=== PATIENT | female | born 1930 | race Caucasian/White ===

== ENCOUNTER 2017-08-28 22:56 | Observation (INO) | payer MEDICARE, BC ==
--- NOTE | 2017-08-28 23:10 | Emergency Department Record ---
History of Present Illness - General Chief Complaint: Syncope Stated Complaint: FALL Time Seen by Provider: 08/28/17 23:05 Source: Patient, Family - History of Present Illness Initial Comments: Daughter reports that all day long the patient was doing a colon prep for an elective colonoscopy scheduled for tomorrow. She was finishing her magnesium citrate, in the bathroom when daughter heard a thud and came to find her on the floor in the bathroom. Daughter states that her eyes rolled back in her head and she was unresponsive and she was weight and limp. EMS arrived to find she had been dizzy, diaphoretic, and confused. C collar was placed and she became alert, responsive, BS 131 enroute, and color improved. Daughter states she was getting an elective colonoscopy due to prior polyps, but she denies that she has had any bleeding from the colon or symptoms of any kind. she has no history of stroke. The patient denies headache, chest pain, abdominal pain, hip or leg pain, pelvis pain. She stats her neck is sore. MD Complaint: Collapsed, [place] faint, Loss of consciousness - Related Data Home Medications Medication Instructions Recorded Confirmed Last Taken Aspirin 81 mg PO DAILY 08/28/17 08/28/17 Unknown Atenolol/Chlorthalidone [Tenoretic 1 each PO DAILY 08/28/17 08/28/17 Unknown 50 Tablet] Calcium Carbonate/Vitamin D3 1 each PO DAILY 08/28/17 08/28/17 Unknown [Calcium 600 + Vit D Tablet] Carbidopa/Levodopa 25Mg/100Mg 1 tab PO BID 08/28/17 08/28/17 Unknown [Sinemet] Carbidopa/Levodopa 25Mg/100Mg 2 tab PO TID 08/28/17 08/28/17 Unknown [Sinemet] Docusate Sodium [Colace] 100 mg PO DAILY 08/28/17 08/28/17 Unknown Glucosamine HCl 1,000 mg PO DAILY 08/28/17 08/28/17 Unknown Meloxicam 7.5 mg PO DAILY 08/28/17 08/28/17 Unknown Metformin HCl [Metformin HCl] 500 mg PO BID 08/28/17 08/28/17 Unknown Delton-3 Fatty Acids [Delton-3] 1,000 mg PO BID 08/28/17 08/28/17 Unknown Allergies Allergy/AdvReac Type Severity Reaction Status Date / Time codeine AdvReac NAUSEA Verified 05/18/16 08:29 meperidine HCl [From Demerol] AdvReac NAUSEA Verified 05/18/16 08:29 morphine AdvReac NAUSEA Verified 05/18/16 08:29 pentazocine lactate AdvReac NAUSEA Verified 05/18/16 08:29 [From Dandre] Review of Systems Reviewed: No additional complaints except as noted below Constitutional: Reports: As per HPI. Denies: Chills, Fever, Malaise, Night sweats, Weakness, Weight change Eyes: Reports: As per HPI. Denies: Eye discharge, Eye pain, Photophobia, Vision change ENT: Reports: As per HPI. Denies: Congestion, Dental pain, Ear pain, Epistaxis , Hearing loss, Throat pain Respiratory: Reports: As per HPI. Denies: Cough, Dyspnea, Hemoptysis, Stridor, Wheezes Cardiovascular: Reports: As per HPI. Denies: Arrhythmia, Chest pain, Dyspnea on exertion, Edema, Murmurs, Orthopnea, Palpitations, Paroxysmal nocturnal dyspnea, Rheumatic Fever, Syncope Endocrine: Reports: As per HPI. Denies: Fatigue, Heat or cold intolerance, Polydipsia, Polyuria Gastrointestinal: Reports: As per HPI. Denies: Abdominal pain, Constipation, Diarrhea, Hematemesis, Hematochezia, Melena, Nausea, Vomiting Genitourinary: Reports: As per HPI. Denies: Abnormal menses, Discharge, Dyspareunia, Dysuria, Frequency, Hematuria, Incontinence, Retention, Urgency Musculoskeletal: Reports: As per HPI. Denies: Arthralgia, Back pain, Gout, Joint swelling, Myalgia, Neck pain Skin: Reports: As per HPI. Denies: Bruising, Change in color, Change in hair/ nails, Lesions, Pruritus, Rash Neurological: Reports: As per HPI. Denies: Abnormal gait, Confusion, Headache, Numbness, Paresthesias, Seizure, Tingling, Tremors, Vertigo, Weakness Psychiatric: Reports: As per HPI. Denies: Anxiety, Auditory hallucinations, Depression, Homicidal thoughts, Suicidal thoughts, Visual hallucinations Hematological/Lymphatic: Reports: As per HPI. Denies: Anemia, Blood Clots, Easy bleeding, Easy bruising, Swollen glands Past Medical History - SOCIAL HISTORY Smoking Status: Former smoker - RESPIRATORY Hx Respiratory Disorders: Yes Hx Bronchitis: Yes (3 weeks ago) Hx COPD: Yes Hx Pneumonia: Yes (more than 10 years ago) - CARDIOVASCULAR Hx Cardio Disorders: Yes Hx Deep Vein Thrombosis: Yes (40 years ago right leg) Hx Edema: Yes ("very little") Hx Hypertension: Yes Comment:: uses cane when out of house - NEURO Hx Neuro Disorders: Yes Hx of Migraines: Yes (occass) Hx Neuropathy: Yes (bilateral hands/arms) Hx Seizures: Yes (seizure activity at age 27 was on meds for a while) - GI Hx GI Disorders: Yes Hx Abdominal Pain: Yes (with eating at times) Hx Reflux: Yes Hx Rectal Bleeding: Yes (occ bright red blood) Hx of Polyps: Yes - Hx Genitourinary Disorders: Yes Hx UTI: Yes (within the last year) - ENDOCRINE Hx Endocrine Disorders: Yes Hx Diabetes: Yes (po medication) Hx Thyroid Disease: Yes Comment:: pt does not check her blood suger - MUSCULOSKELETAL Hx Musculoskeletal Disorders: Yes Hx Arthritis: Yes Hx Osteoporosis: Yes Comment:: problems with left leg since femur fracture 2014 - PSYCH Hx Psych Problems: Yes Hx Anxiety: Yes (does not take any meds to treat) - HEMATOLOGY/ONCOLOGY Hx Hematology/Oncology Disorders: Yes Hx Blood Transfusions: Yes (before hyst) Family Medical History Hx Cancer: Brother/Sister *Cancer Comment: sisters x2 : uterine, and colon Hx Heart Disease: Mother *Heart Comment: heart attack Physical Exam - General General Appearance: Alert, Oriented x3, Cooperative, No acute distress, Other ( pale) - Head Head exam: Normal inspection - Eye Eye exam: Normal appearance, PERRL Pupils: Normal accommodation - ENT ENT exam: Normal exam, Mucous membranes moist, Normal external ear exam, Normal orophraynx, TM's normal bilaterally Ear exam: Normal external inspection. negative: External canal tenderness Nasal Exam: Normal inspection. negative: Discharge, Sinus tenderness Mouth exam: Normal external inspection, Tongue normal Teeth exam: Normal inspection. negative: Dental caries Throat exam: Normal inspection. negative: Tonsillar erythema, Tonsillar exudate - Neck Neck exam: Normal inspection, Full ROM. negative: Tenderness - Respiratory Respiratory exam: Normal lung sounds bilaterally. negative: Respiratory distress - Cardiovascular Cardiovascular Exam: Regular rate, Normal rhythm, Normal heart sounds - GI/Abdominal GI/Abdominal exam: Soft, Normal bowel sounds. negative: Tenderness - Rectal Rectal exam: Deferred - exam: Deferred - Extremities Extremities exam: Normal inspection, Full ROM, Normal capillary refill. negative: Calf tenderness, Pedal edema, Tenderness - Back Back exam: Reports: Normal inspection, Full ROM. Denies: Muscle spasm, Rash noted, Tenderness - Neurological Neurological exam: Alert, CN II-XII intact, Normal gait, Oriented X3, Reflexes normal. negative: Motor sensory deficit - Psychiatric Psychiatric exam: Normal affect, Normal mood - Skin Skin exam: Dry, Intact, Normal color, Warm Course - Reevaluation(s) Reevaluation #1: Patient's color has improved. She has an 8:30 a.m colonoscopy here in the morning with Dr. Domínguez and requests to just be watched here tonight as she is the first case in the morning. Awaiting UA specimen and results. 08/29/17 01:04 08/29/17 01:54 Reevaluation #2: Patient is feeling better. Her color has normalized. She states she takes potassium 30 mg twice daily and "every time my potassium is checked it is low." 08/29/17 01:57 Medical Decision Making - Management Options MDM Management: Additional Work-up Planned (e.g. ADM/Transfer/OP Study) (Admit for observation for (prior) scheduled colonoscopy) - Data Complexity MDM Data: Labs Ordered and/or Reviewed (Normal except for K 3.2 and lactate 2.2) , X-Ray Ordered and/or Reviewed (CT Head and C spine: Negative for acute abnormality. Chronic SVID and diffuse cerebral atrophy. 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 Per [facility].), EKG Ordered and/or Reviewed - Lab Data Result diagrams: 08/28/17 23:16 08/28/17 23:16 - EKG Data -: EKG Interpreted by Me EKG: No Acute Changes, Unchanged From Previous (prior of 3-6-15, unchanged) Disposition Disposition: Admit Clinical Impression: Orthostatic syncope, Colonoscopy planned Disposition: Still a Patient at [facility] Decision to Admit: Admit from ER Decision to Admit Date: 08/29/17 Decision to Admit Time: 01:59 Accepting Physician: Dr. Ortiz/Erin Sofia Time Discussed w/Accepting Physician: 06:30 Condition: (2) Stable Forms: Patient Portal Access Quality - Quality Measures Quality Measures: N/A - Blood Pressure Screening Does Patient Have Any of the Following: No Blood Pressure Classification: Pre-Hypertensive BP Reading Systolic Measurement: 137 Diastolic Measurement: 73 Screening for High Blood Pressure: < Normal BP, F/U Not Required > [G8783]
[2017-08-28] MEDS ORDERED: 0.9 % SODIUM CHLORIDE 500ML 500 ML IV SCH (23:15)
[2017-08-28 23:20] LABS: BASO % 0.5 % (0-6); EOS % 3.1 % (0-6); GRAN % 52.2 % (47-80); HEMOGLOBIN 14.8 gm/dl (11.6-16.0); MEAN CELL VOLUME 90.7 fl (81-97); MEAN CORPUSCULAR HEMOGLOBIN 30.5 pg (27-33); MEAN CORPUSCULAR HGB CONC 33.6 g/dl (32-36); MEAN PLATELET VOLUME 10.2 fl (7.4-10.4); MONO % 9.2 % (0-9); PLATELET COUNT 267 K/uL (130-400); RED BLOOD COUNT 4.85 M/uL (3.80-5.40); RED CELL DISTRIBUTION WIDTH 14.8 % (11.5-14.5); WHITE BLOOD COUNT W/O DIFF 9.7 K/uL (4.2-12.2)
[2017-08-28 23:38] LABS: ALBUMIN 4.8 g/dL (4.0-5.0); ALKALINE PHOSPHATASE 77 U/L (35-104); ALT/SGPT 17 U/L (<33); AST/SGOT 27 U/L (10.0-35.0); BILIRUBIN,DIRECT < 0.2 mg/dL (0-0.3); BLOOD UREA NITROGEN 12 mg/dL (8-23); CREATININE 0.5 mg/dL (0.5-0.9); EST GLOMERULAR FILTRATION RATE > 60 mL/min; GLUCOSE,RANDOM 128 mg/dL (74-109); INR 0.98; LACTIC ACID 2.4 mmol/L (0.5-2.2); PARTIAL THROMBOPLASTIN TIME 24.5 SECONDS (24.5-39.1); PROTHROMBIN TIME (PATIENT) 10.6 SECONDS (9.5-12.1); TOTAL PROTEIN 8.2 g/dL (6.6-8.7)
[2017-08-29] MEDS ORDERED: POTASSIUM CHLORIDE 20 MEQ TABLET PO ONE (00:12)
[2017-08-29 01:19] LABS: URINE APPEARANCE CLEAR; URINE BILIRUBIN NEGATIVE (NEGATIVE); URINE BLOOD TRACE-I (NEGATIVE); URINE COLOR YELLOW; URINE GLUCOSE (UA) NEGATIVE (NEGATIVE); URINE KETONE NEGATIVE (NEGATIVE); URINE LEUKOCYTE ESTERASE SMALL (NEGATIVE); URINE NITRITE POSITIVE (NEGATIVE); URINE PROTEIN NEGATIVE (NEGATIVE); URINE UROBILINOGEN 0.2 E.U./dL (0.20 - 1.00)
[2017-08-29 01:28] LABS: URINE BACTERIA 1+; URINE EPITHELIAL CELLS 0 - 2 (FEW); URINE RBC 0 - 2 (NONE SEEN)
[2017-08-29] MEDS ORDERED: TMP/SMZ 160MG/800MG TAB PO ONE (01:53)
[2017-08-29] MEDS ORDERED: 0.9 % SODIUM CHLORIDE 1000ML 1,000 ML IV PRN (02:27)
[2017-08-29] MEDS ORDERED: POLYETHYLENE GLY 17 GM PACKET PO ONE (03:14)
--- NOTE | 2017-08-29 07:14 | RADIOLOGY REPORT ---
EXAM: PELVIS AND BILATERAL HIPS HISTORY: PAIN. TECHNIQUE: AP view of the pelvis with two views of each hip were obtained. Comparison: None. FINDINGS: Osteopenia. Degenerative change of the hips bilaterally. Negative for acute fracture or dislocation. The soft tissues are unremarkable. IMPRESSION: OSTEOPENIA. NO ACUTE OSSEOUS ABNORMALITY. JOB [facility]BER: [id number] [facility]
--- NOTE | 2017-08-29 07:17 | CT SCAN REPORT ---
EXAM: CT OF THE CERVICAL SPINE HISTORY: INJURY. TECHNIQUE: Axial CT images of the cervical spine were obtained with coronal and sagittal reconstructions. Comparison: None. FINDINGS: Evaluation of spinal canal contents limited due to CT technique. The vertebral body height is preserved. Minor anterolisthesis of C4 with respect to C5 felt to be on a degenerative basis. Alignment is otherwise preserved. Degenerative changes throughout the cervical spine with disk space narrowing, osteophytic spurring, facet arthropathy, and uncovertebral joint hypertrophy. IMPRESSION: NEGATIVE FOR ACUTE CERVICAL SPINE ABNORMALITY. MULTILEVEL DEGENERATIVE CHANGE. [facility]: [id number] [facility]
--- NOTE | 2017-08-29 07:20 | RADIOLOGY REPORT ---
EXAM: CHEST, TWO VIEWS HISTORY: FALL. TECHNIQUE: Frontal and lateral views of the chest were obtained. Comparison: Prior chest from 11/12/14. FINDINGS: Stable cardiomegaly. Calcified granulomata. Atheromatous change of the thoracic aorta. Osteopenia. The lungs are hyperinflated, but clear. No pneumothorax. IMPRESSION: STABLE CARDIOMEGALY. UNDERLYING COPD. JOB NUMBER: [id number] [facility]
--- NOTE | 2017-08-29 07:22 | CT SCAN REPORT ---
EXAM: CT OF THE BRAIN WITHOUT CONTRAST HISTORY: FALL. TECHNIQUE: CT of the brain without contrast was obtained. Comparison: Prior CT from 01/19/11. FINDINGS: The globes are intact. The paranasal sinuses and mastoid air cells are unremarkable. No displaced or depressed skull fracture. No intra or extraaxial hemorrhage. CT is limited for the evaluation of acute infarct. No CT evidence for large or territorial acute infarct. Age appropriate atrophy with small vessel ischemic change. IMPRESSION: AGE APPROPRIATE ATROPHY. SMALL VESSEL ISCHEMIC CHANGE. J[facility] NUMBER: [id number] [facility]
[2017-08-29] MEDS ORDERED: LEVOTHYROXINE SOD 112 MCG TAB PO SCH (09:23)
[2017-08-29] MEDS ORDERED: LEVOTHYROXINE SODIUM 25 MCG TABLET PO SCH (09:30)
[2017-08-29] MEDS: TMP/SMZ 160MG/800MG TAB PO SCH ×2 (10:26→21:38)
--- NOTE | 2017-08-29 11:12 | Rehab Evaluation ---
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 sx left femur broken bone with surgery left check bone broken with plastic surgery PMH - Respiratory Hx Respiratory Disorders Yes Hx Bronchitis Yes: 3 weeks ago Hx Chronic Obstructive Yes Pulmonary Disease (COPD) Hx Pneumonia Yes: more than 10 years ago PMH - Cardiovascular Hx Cardiovascular Disorders Yes Hx Deep Vein Thrombosis Yes: 40 years ago right leg Hx Edema Yes: "very little" Hx Hypertension Yes Hx of Migraines Yes: occass Comment: uses cane when out of house PMH - Neuro Hx Neurological Disorders Yes Hx Neuropathy Yes: bilateral hands/arms Hx Seizures Yes: seizure activity at age 27 was on meds for a while PMH - GI Hx Gastrointestinal Disorders Yes Hx Abdominal Pain Yes: with eating at times Hx Gastroesophageal Reflux Yes Hx Rectal Bleeding Yes: occ bright red blood PMH - Hx Genitourinary Disorders Yes Patient No Hx Urinary Tract Infection Yes: within the last year PMH - Endocrine Hx Endocrine Disorders Yes Hx Diabetes Yes: po medication Hx Thyroid Disease Yes Comment: pt does not check her blood suger PMH - Musculoskeletal Hx Musculoskeletal Disorders Yes Hx Arthritis Yes Hx Osteoporosis Yes Comment: problems with left leg since femur fracture 2014 PMH - Psych Hx Psychiatric Problems Yes Hx Anxiety Yes: does not take any meds to treat PMH - Hematology/Oncology Hx Hematology/Oncology Yes Disorders Precautions: [place], Fall, Cardiac - Time With Patient Total Time Spent With Patient (Min): 30 Treatment Procedures: Detail (Patient seen in room and sitting up edge of bed talking with pharmacist. Evaluated UES and LES for ROM and strength then sit to stand with CGA only, ambulated into hanks and about 100 feet down to surgery area with quad cane and fairly good balance then ambulated back to room. Standing balance a little impaired yet because looks down with gait at floor. Able to correct with cues.) Subjective Information - Subjective Information Per Patient (Patient lives alone but family close by and check on patient regularly. Able to do laundry and walk up and down stairs as needed. This was an isolated incident per patient and has never happened before.) Objective Data - Pain Pain Present: Yes Pain Scale Used: Numeric (1 - 10) (1-2/10) - Mental Status Patient Orientation: Oriented x3 - Visual Perception Appears within normal limits for therapeutic activities - ROM Within normal limits (UES and LES WNL but did not fully check out trunk as other professions waiting for patient.) - Strength/Tone Within normal limits (UES and LES 4/5 at least and core at least 3/5.) - Coordination Appears within normal limits for therapeutic activities (Quite good, able to transition and turn safely. Balance a little impaired initially upon rising but got better as walked.) - Bed Mobility Independent - Transfers Independent (Slow and controlled so safe. Some dizziness with transitions.) - Balance Balance Sitting: Good Balance Standing: Fair (Fair to good, better as up on feet.) - Sensation Intact - Gait Detail (Using quad cane now for safety but at home does not always use cane as furniture close to hold onto for balance. Able to walk today at least 100 feet past surgery then back to room without loss of balance but does turn slowly to make sure safe.) Therapy Assessment - Therapy Assessment Detail (Patient actually doing quite well today. Undergoing other testing to make sure medically stable but feel that mobility is back to normal for this patient and she can go home safely with family.) Patient Education - Patient Education Teaching Topic: Equipment Use, Precautions, Risk Factors Response: Return Demonstration Teaching Method: Demonstration Teaching Recipient: Patient, Family Barriers To Learning: Age Related Problem List - Problem List Physical Therapy Problem List: Detail (Some issues with safety with gait and balance over the years but right now she is doing quite well and knows her limitations. Daughter wants her to use cane more and patient willing for safety purposes.) Goals - Goals Physical Therapy Goals: Patient safe from PT point of view to return home with family assist as needed. Does not need further intervention from rehab at this time. Prognosis - Prognosis Good Plan - Plan Physical Therapy Plan: Home with family, follow up with doctors as needed. No PT intervention needed at this time.
[2017-08-29] MEDS: ATENOLOL 25 MG TABLET PO SCH (11:52)
[2017-08-29] MEDS: POTASSIUM CHLORIDE 10 MEQ TAB PO SCH ×2 (11:52→21:35)
[2017-08-29] MEDS: CARBIDOPA/LEVODOPA 25MG/100MG TABLET PO SCH ×5 (11:52→21:35)
[2017-08-29] MEDS: METFORMIN 500 MG TABLET PO SCH ×2 (11:52→21:35)
[2017-08-29] MEDS: PATIENT OWN MED: RALOXIFENE 60 MG PO SCH (11:53)
[2017-08-29] MEDS ORDERED: ONDANSETRON HCL IV 4 MG/2 ML VIAL IVP PRN (12:24)
--- NOTE | 2017-08-29 12:30 | History & Physical ---
History of Present Illness - Date of Service Date of Service for History & Physical: 08/29/17 - History of Present Illness Admitting Diagnosis: Vasovagal syncope; dehydration secondary to colon prep; History of Present Illness: 87yo female with CC of syncope. She has a history of Parkinson's, HTN, T2DM, arthritis, osteoporosis, GERD, tubular adenoma, neuropathy, hypothyroidism, and was a former smoker. Patient was brought to the ED last night by EMS after a syncopal episode. Daughter reports that all day long the patient was doing a colon prep for an elective colonoscopy scheduled for the next day. She was finishing her magnesium citrate, in the bathroom when daughter heard a thud and came to find her on the floor in the bathroom. Daughter states that her eyes rolled back in her head and she was unresponsive for about a minute. EMS arrived to find she had been dizzy, diaphoretic, and confused. C collar was placed and she became alert, responsive, BS 131 enroute, and color improved. While in the ED, patient had EKG that showed NSR with LVH. Head Ct was negative for acute hemorrhage, showed age appropriate atrophy. CT c-spine showed no acute findings, as did her CXR and Hip XR. DDimer was 0.49. CBC was unremarkable. CP showed slightly low sodium 135 and potassium 3.2. BUN/Cr wnl. Her LA was elevated at 2.4. UA was positive for nitrites and LE. Patient was given one bactrim DS orally and admitted for syncope. 08/29/17- Patient states she is feeling better today. She denies any head ache, dizziness, vision changes. She has continued to have loose stool from the prep and is feeling very hungry. She denies chest pain, abdominal pain, vomiting. she says this is the first time she has had a syncopble episode. She does follow with Dr. Gomes, neurology, for parkinson's. She lives with her daughter and has round the clock assistance if needed. She usually gets around the house on her own with either a cane or walker. pcp: Dr. Lin/Olimpia Travel Screening - Travel/Exposure Within Last 30 Days Have you traveled within the last 30 days?: No - Travel/Exposure Within Last Year Have you traveled outside the [place] in the last year?: No - Additonal Travel Details Have you been exposed to anyone with a communicable illness?: No - Travel Symptoms Symptom Screening: None Review of Systems Constitutional: Reports: As per HPI. Denies: Chills, Fever, Malaise, Night sweats, Weakness, Weight change Eyes: Reports: As per HPI. Denies: Eye discharge, Eye pain, Photophobia, Vision change ENT: Reports: As per HPI. Denies: Congestion, Dental pain, Ear pain, Epistaxis , Hearing loss, Throat pain Respiratory: Reports: As per HPI. Denies: Cough, Dyspnea, Hemoptysis, Stridor, Wheezes Cardiovascular: Reports: As per HPI. Denies: Arrhythmia, Chest pain, Dyspnea on exertion, Edema, Murmurs, Orthopnea, Palpitations, Paroxysmal nocturnal dyspnea, Rheumatic Fever, Syncope Endocrine: Reports: As per HPI. Denies: Fatigue, Heat or cold intolerance, Polydipsia, Polyuria Gastrointestinal: Reports: As per HPI. Denies: Abdominal pain, Constipation, Diarrhea, Hematemesis, Hematochezia, Melena, Nausea, Vomiting Genitourinary: Reports: As per HPI. Denies: Abnormal menses, Discharge, Dyspareunia, Dysuria, Frequency, Hematuria, Incontinence, Retention, Urgency Musculoskeletal: Reports: As per HPI. Denies: Arthralgia, Back pain, Gout, Joint swelling, Myalgia, Neck pain Skin: Reports: As per HPI. Denies: Bruising, Change in color, Change in hair/ nails, Lesions, Pruritus, Rash Neurological: Reports: As per HPI. Denies: Abnormal gait, Confusion, Headache, Numbness, Paresthesias, Seizure, Tingling, Tremors, Vertigo, Weakness Psychiatric: Reports: As per HPI. Denies: Anxiety, Auditory hallucinations, Depression, Homicidal thoughts, Suicidal thoughts, Visual hallucinations Hematological/Lymphatic: Reports: As per HPI. Denies: Anemia, Blood Clots, Easy bleeding, Easy bruising, Swollen glands Past Medical History - SOCIAL HISTORY Smoking Status: Former smoker Alcohol Use: None Drug Use: None - RESPIRATORY Hx Respiratory Disorders: Yes Hx Bronchitis: Yes (3 weeks ago) Hx COPD: Yes Hx Pneumonia: Yes (more than 10 years ago) - CARDIOVASCULAR Hx Cardio Disorders: Yes Hx Deep Vein Thrombosis: Yes (40 years ago right leg) Hx Edema: Yes ("very little") Hx Hypertension: Yes Comment:: uses cane when out of house - NEURO Hx Neuro Disorders: Yes Hx of Migraines: Yes (occass) Hx Neuropathy: Yes (bilateral hands/arms) Hx Seizures: Yes (seizure activity at age 27 was on meds for a while) - GI Hx GI Disorders: Yes Hx Abdominal Pain: Yes (with eating at times) Hx Reflux: Yes Hx Rectal Bleeding: Yes (occ bright red blood) Hx of Polyps: Yes - Hx Genitourinary Disorders: Yes Hx UTI: Yes (within the last year) - ENDOCRINE Hx Endocrine Disorders: Yes Hx Diabetes: Yes (po medication) Hx Thyroid Disease: Yes Comment:: pt does not check her blood suger - MUSCULOSKELETAL Hx Musculoskeletal Disorders: Yes Hx Arthritis: Yes Hx Osteoporosis: Yes Comment:: problems with left leg since femur fracture 2014 - PSYCH Hx Psych Problems: Yes Hx Anxiety: Yes (does not take any meds to treat) - HEMATOLOGY/ONCOLOGY Hx Hematology/Oncology Disorders: Yes Hx Blood Transfusions: Yes (before hyst) Family Medical History Any Significant Family History?: Yes Hx Cancer: Brother/Sister *Cancer Comment: sisters x2 : uterine, and colon Hx Heart Disease: Mother *Heart Comment: heart attack H&P Meds/Allergies - Allergies Allergies: Allergies Allergy/AdvReac Type Severity Reaction Status Date / Time codeine AdvReac NAUSEA Verified 05/18/16 08:29 meperidine HCl [From Demerol] AdvReac NAUSEA Verified 05/18/16 08:29 morphine AdvReac NAUSEA Verified 05/18/16 08:29 pentazocine lactate AdvReac NAUSEA Verified 05/18/16 08:29 [From [place]] - Home Medications Home Medications Medication Instructions Recorded Confirmed Last Taken Aspirin 81 mg PO DAILY 08/28/17 08/28/17 Unknown Atenolol/Chlorthalidone [Tenoretic 1 each PO DAILY 08/28/17 08/28/17 Unknown 50 Tablet] Calcium Carbonate/Vitamin D3 1 each PO DAILY 08/28/17 08/28/17 Unknown [Calcium 600 + Vit D Tablet] Carbidopa/Levodopa 25Mg/100Mg 1 tab PO BID 08/28/17 08/28/17 Unknown [Sinemet] Carbidopa/Levodopa 25Mg/100Mg 2 tab PO TID 08/28/17 08/28/17 Unknown [Sinemet] Docusate Sodium [Colace] 100 mg PO DAILY 08/28/17 08/28/17 Unknown Glucosamine HCl 1,000 mg PO DAILY 08/28/17 08/28/17 Unknown Meloxicam 7.5 mg PO DAILY 08/28/17 08/28/17 Unknown Metformin HCl [Metformin HCl] 500 mg PO BID 08/28/17 08/28/17 Unknown [place]hu[place]ana-3 Fatty Acids [Tehuacana-3] 1,000 mg PO BID 08/28/17 08/28/17 Unknown - Active Medications Active Medications: Current Medications Atenolol (Tenormin) 25 mg PO DAILY [facility] Last Admin: 08/29/17 11:52 Dose: 25 mg Carbidopa/Levodopa (Sinemet) 2 each PO 0600,1400,2200 YVONNE Carbidopa/Levodopa (Sinemet) 1 each PO 1000,1800 [facility] Last Admin: 08/29/17 11:52 Dose: 1 each Sodium Chloride () 1,000 mls @ 100 mls/hr IV .Q10H PRN PRN Reason: LARGE VOLUME IV Levothyroxine Sodium (Synthroid) 100 mcg PO DAILYTHY [facility] Metformin HCl (Glucophage Ir) 500 mg PO BID [facility] Last Admin: 08/29/17 11:52 Dose: 500 mg Ondansetron HCl (Zofran) 4 mg IVP Q4H PRN PRN Reason: NAUSEA Last Admin: 08/29/17 12:27 Dose: 4 mg Patient Own Med: (Raloxifene 60 Mg) 1 each PO DAILY [facility] Last Admin: 08/29/17 11:53 Dose: 1 each Potassium Chloride (Klor-Con) 30 meq PO BID [facility] Last Admin: 08/29/17 11:52 Dose: 30 meq Simvastatin (Zocor) 80 mg PO QHS [facility] Timolol Maleate (Timoptic) 1 drop OPTH BID [facility] Trimethoprim/Sulfamethoxazole (Bactrim Ds) 1 each PO BID [facility] Last Admin: 08/29/17 10:26 Dose: 1 each Physical Exam - Vital Signs Vital Signs: Vital Signs - Last 24 Hrs Temp Pulse Pulse Resp BP Pulse Ox 08/29/17 09:00 85 81 18 08/29/17 06:00 97.3 F L 81 18 151/75 98 08/29/17 02:44 98.8 F 76 18 157/73 96 - General General Appearance: Alert, Oriented x3, Cooperative, No acute distress - Head Head exam: Atraumatic, Normal inspection - Eye Eye exam: Normal appearance, PERRL Pupils: Normal accommodation - ENT ENT exam: Normal exam, Mucous membranes moist, Normal external ear exam, Normal orophraynx, TM's normal bilaterally Ear exam: Normal external inspection. negative: External canal tenderness Nasal Exam: Normal inspection. negative: Discharge, Sinus tenderness Mouth exam: Normal external inspection, Tongue normal Teeth exam: Normal inspection. negative: Dental caries Throat exam: Normal inspection. negative: Tonsillar erythema, Tonsillar exudate - Neck Neck exam: Normal inspection, Full ROM. negative: Tenderness - Respiratory Respiratory exam: Normal lung sounds bilaterally. negative: Respiratory distress - Cardiovascular Cardiovascular Exam: Regular rate, Normal rhythm, Normal heart sounds - GI/Abdominal GI/Abdominal exam: Soft, Normal bowel sounds. negative: Tenderness - Rectal Rectal exam: Deferred - exam: Deferred - Extremities Extremities exam: Normal inspection, Full ROM, Normal capillary refill. negative: Calf tenderness, Pedal edema, Tenderness - Back Back exam: Reports: Normal inspection, Full ROM. Denies: Muscle spasm, Rash noted, Tenderness - Neurological Neurological exam: Alert, CN II-XII intact, Normal gait, Oriented X3, Reflexes normal. negative: Motor sensory deficit - Psychiatric Psychiatric exam: Normal affect, Normal mood - Skin Skin exam: Dry, Intact, Normal color, Warm Results - Labs Result Diagrams: 08/28/17 23:16 08/30/17 06:00 - Imaging and Cardiology Chest x-ray Status: Report reviewed (nap) CT scan - head Status: Report reviewed (nap) cervical spine CT Status: Report reviewed (nap) hip/pelvix XR Status: Report reviewed (nap) VTE H&P Assessment - Risk for VTE Risk for VTE: Yes Risk Level: High Risk Assessment Date: 08/29/17 Risk Assessment Time: 10:00 VTE Orders Placed or Will Be Placed: Yes Plan - Detailed Diagnosis and Plan (1) Syncope Current Visit: Yes Status: Acute Qualifiers: Syncope type: unspecified Qualified Code(s): R55 - Syncope and collapse Base Code: R55 - SYNCOPE AND COLLAPSE Comment: 08/29/17- based on history and work up thus far, most likely, vasovagal syncope. Ct head negative. EKG showing NSR with LVH. Will complete work up for syncope to evaluate for cardiogenic causes. -carotid doppler ordered -echo ordered -continue tele -PT/OT eval ordered -vitals q8H -repeat labs qam (2) Hypokalemia Current Visit: Yes Status: Acute Base Code: E87.6 - HYPOKALEMIA Comment: 08/29/17- improved slightly. Patient is on both chlorthalidone and Hctz daily which is MLC of her chronic hypokalemia, probably exacerbated by cscope prep yesterday. She denies h/o CHF or pedal edema. echo has been ordered -hold diuretics -continue oral potassium supplementation until potassium level returns to normal range -repeat labs qam (3) UTI (urinary tract infection) Current Visit: Yes Status: Acute Qualifiers: Urinary tract infection type: acute cystitis Hematuria presence: without hematuria Qualified Code(s): N30.00 - Acute cystitis without hematuria Base Code: N39.0 - URINARY TRACT INFECTION, SITE NOT SPECIFIED Comment: - UA positive for nitrite and LE. likely 2/2 dehydration and cscope prep. -continue bactrim DS po bid or 3 days (4) Colonoscopy planned Current Visit: Yes Status: Acute Base Code: [id number] - Comment: 08/29/17- Dr. Domínguez did not feel colonsocopy was appropriate at this time. It has been cancelled. I will touch base to see if she should even be rescheduled, as this was elective based on her h/o tubular adenoma. (5) DVT prophylaxis Current Visit: Yes Status: Acute Base Code: [id number] - Comment: 08/29/17- Patient is high risk with age and restricted mobility. lovenox 40mg sq daily (6) Full code status Current Visit: Yes Status: Acute Base Code: Z78.9 - OTHER SPECIFIED HEALTH STATUS Comment: 08/29/17- patient is full code
[2017-08-29] MEDS: TIMOLOL MALEATE 0.5% 5ML BTL OPTH SCH ×2 (12:34→21:38)
[2017-08-29 12:37] LABS: LACTIC ACID 3.7 mmol/L (0.5-2.2)
--- NOTE | 2017-08-29 14:32 | US CAROTID DOPPLER REPORT ---
EXAM: BILATERAL CAROTID DOPPLER ULTRASOUND HISTORY: PARKINSON'S, DIZZINESS AND SYNCOPE. TECHNIQUE: Transverse and longitudinal sonographic images of the cervical portions of the carotid arteries were obtained. Comparison: None. FINDINGS: Imaging over the carotid arteries demonstrates at least moderate atheromatous plaque formation at the level of the right carotid bifurcation and mild to moderate atheromatous plaque formation of the left carotid bifurcation. Doppler and spectral analysis with color flow was utilized. Biphasic waveforms are present bilaterally. Velocities are as follows (in peak systolic velocity): Right ICA: 56 cm/s Right CCA: 95 cm/s Right ECA: 96 cm/s Right vertebral artery: 38 cm/s Right ICA/CCA ratio: 0.6 Left ICA: 66 cm/s Left CCA: 59 cm/s Left ECA: 89 cm/s Left vertebral artery: 33 cm/s Left ICA/CCA ratio: 1.1 IMPRESSION: ATHEROMATOUS PLAQUE FORMATION IS VISIBLE AT THE CAROTID BIFURCATIONS BILATERALLY , HOWEVER, ICA PEAK SYSTOLIC VELOCITIES CORRESPOND TO LESS THAN 50% LUMINAL NARROWING BILATERALLY. JOB NUMBER: [id number] MTDD
[2017-08-29] MEDS ORDERED: SIMVASTATIN 20 MG TABLET PO SCH (22:00)
[2017-08-30] MEDS: CARBIDOPA/LEVODOPA 25MG/100MG TABLET PO SCH ×2 (06:13→10:19)
[2017-08-30] MEDS ORDERED: LEVOTHYROXINE SODIUM 100 MCG TABLET PO SCH (07:00)
[2017-08-30 07:30] LABS: LACTIC ACID 2.5 mmol/L (0.5-2.2)
[2017-08-30 07:58] LABS: ALB/GLOB RATIO 1.3 (1.1-1.8); ALBUMIN 3.4 g/dL (4.0-5.0); ALKALINE PHOSPHATASE 55 U/L (35-104); ALT/SGPT 7 U/L (<33); AST/SGOT 15 U/L (10.0-35.0); BLOOD UREA NITROGEN 8 mg/dL (8-23); CREATININE 0.6 mg/dL (0.5-0.9); EST GLOMERULAR FILTRATION RATE > 60 mL/min; GLUCOSE,RANDOM 90 mg/dL (74-109); TOTAL PROTEIN 6.1 g/dL (6.6-8.7)
--- NOTE | 2017-08-30 09:36 | Rehab Evaluation ---
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 sx left femur broken bone with surgery left check bone broken with plastic surgery PMH - Respiratory Hx Respiratory Disorders Yes Hx Bronchitis Yes: 3 weeks ago Hx Chronic Obstructive Yes Pulmonary Disease (COPD) Hx Pneumonia Yes: more than 10 years ago PMH - Cardiovascular Hx Cardiovascular Disorders Yes Hx Deep Vein Thrombosis Yes: 40 years ago right leg Hx Edema Yes: "very little" Hx Hypertension Yes Hx of Migraines Yes: occass Comment: uses cane when out of house PMH - Neuro Hx Neurological Disorders Yes Hx Neuropathy Yes: bilateral hands/arms Hx Seizures Yes: seizure activity at age 27 was on meds for a while PMH - GI Hx Gastrointestinal Disorders Yes Hx Abdominal Pain Yes: with eating at times Hx Gastroesophageal Reflux Yes Hx Rectal Bleeding Yes: occ bright red blood PMH - Hx Genitourinary Disorders Yes Patient No Hx Urinary Tract Infection Yes: within the last year PMH - Endocrine Hx Endocrine Disorders Yes Hx Diabetes Yes: po medication Hx Thyroid Disease Yes Comment: pt does not check her blood suger PMH - Musculoskeletal Hx Musculoskeletal Disorders Yes Hx Arthritis Yes Hx Osteoporosis Yes Comment: problems with left leg since femur fracture 2014 PMH - Psych Hx Psychiatric Problems Yes Hx Anxiety Yes: does not take any meds to treat PMH - Hematology/Oncology Hx Hematology/Oncology Yes Disorders Premorbid Status: Detail (Pt lives with daughter in a 1 story house with basement. Her laundry is in the basement. She has 5 steps total to enter her house with railing at the exterior 3 steps. She has a tub/shower combination and usually stands to shower. She is Ind with laundry, she shares home mgmt, meal prep with family. She has a quad cane and 2 wheeled walker.) Social History: Detail (Supportive daughter) Precautions: [place], Fall, Cardiac - Time With Patient Total Time Spent With Patient (Min): 35 Treatment Procedures: Detail (OT eval low complexity) Subjective Information - Subjective Information Per Patient Objective Data - Pain Pain Present: No - Mental Status Patient Orientation: Oriented x3 - Visual Perception Appears within normal limits for therapeutic activities (Pt wears glasses.) - ROM Within normal limits (Werner UE AROM WNL) - Strength/Tone Within normal limits (Werner UE MMT 4+/5) - Coordination Appears within normal limits for therapeutic activities - Bed Mobility Independent (Ind with supine to sit and sit to supine.) - Transfers Independent (Ind with sit to stand.) - Balance Balance Sitting: Good Balance Standing: Good - Sensation Intact - Gait Detail (Pt ambulated in hallway with quad cane Indly.) - ADL's/IADL's Detail (Pt reports she is Ind with toileting, she feels she will have no difficulty with any ADLs/IADLs after discharge.) Therapy Assessment - Therapy Assessment Detail (Pt feels she will be Ind with all ADLs/IADLs, she is Ind with mobility and demonstrates WNL UE function.) Problem List - Problem List Physical Therapy Problem List: Detail (Some issues with safety with gait and balance over the years but right now she is doing quite well and knows her limitations. Daughter wants her to use cane more and patient willing for safety purposes.) Occupational Therapy Problem List: Detail (No cuurent OT problems identified.) Goals - Goals Physical Therapy Goals: Patient safe from PT point of view to return home with family assist as needed. Does not need further intervention from rehab at this time. Occupational Therapy Goals: No OT goals identified. Prognosis - Prognosis Good Plan - Plan Physical Therapy Plan: Home with family, follow up with doctors as needed. No PT intervention needed at this time. Occupational Therapy Plan: Feel pt is safe from OT perspective, no further OT recommended at this time.
[2017-08-30] MEDS: POTASSIUM CHLORIDE 10 MEQ TAB PO SCH (10:17)
[2017-08-30] MEDS: TMP/SMZ 160MG/800MG TAB PO SCH (10:18)
[2017-08-30] MEDS: PATIENT OWN MED: RALOXIFENE 60 MG PO SCH (10:18)
[2017-08-30] MEDS: ATENOLOL 25 MG TABLET PO SCH (10:18)
[2017-08-30] MEDS: METFORMIN 500 MG TABLET PO SCH (10:18)
[2017-08-30] MEDS: TIMOLOL MALEATE 0.5% 5ML BTL OPTH SCH (10:25)
--- NOTE | 2017-08-30 11:01 | Discharge Summary ---
Providers Discharge Summary Date: 08/30/17 Date of admission: 08/29/17 02:21 Expected Date of Discharge: 08/30/17 Attending physician: Kalia Lin Primary care physician: Kalia Lin Physical Exam - Vital Signs Vital Signs: Vital Signs - Last 24 Hrs Temp Pulse Pulse Resp BP Pulse Ox 08/30/17 10:00 97.6 F 84 18 112/53 95 08/30/17 09:00 82 16 08/30/17 06:00 98.4 F 73 18 123/64 96 08/30/17 02:00 98.4 F 79 18 140/69 97 08/29/17 22:00 98.6 F 70 18 121/65 98 08/29/17 18:00 98 F 85 18 94/44 96 08/29/17 14:00 98 F 76 18 94/54 97 - General General Appearance: Alert, Oriented x3, Cooperative, No acute distress - Head Head exam: Atraumatic, Normal inspection - Eye Eye exam: Normal appearance, PERRL Pupils: Normal accommodation - ENT ENT exam: Normal exam, Mucous membranes moist, Normal external ear exam, Normal orophraynx, TM's normal bilaterally Ear exam: Normal external inspection. negative: External canal tenderness Nasal Exam: Normal inspection. negative: Discharge, Sinus tenderness Mouth exam: Normal external inspection, Tongue normal Teeth exam: Normal inspection. negative: Dental caries Throat exam: Normal inspection. negative: Tonsillar erythema, Tonsillar exudate - Neck Neck exam: Normal inspection, Full ROM. negative: Tenderness - Respiratory Respiratory exam: Normal lung sounds bilaterally. negative: Respiratory distress - Cardiovascular Cardiovascular Exam: Regular rate, Normal rhythm, Normal heart sounds - GI/Abdominal GI/Abdominal exam: Soft, Normal bowel sounds. negative: Tenderness - Rectal Rectal exam: Deferred - exam: Deferred - Extremities Extremities exam: Normal inspection, Full ROM, Normal capillary refill. negative: Calf tenderness, Pedal edema, Tenderness - Back Back exam: Reports: Normal inspection, Full ROM. Denies: Muscle spasm, Rash noted, Tenderness - Neurological Neurological exam: Alert, CN II-XII intact, Normal gait, Oriented X3, Reflexes normal. negative: Motor sensory deficit - Psychiatric Psychiatric exam: Normal affect, Normal mood - Skin Skin exam: Dry, Intact, Normal color, Warm Hospitalization - Hospitalization Admission Diagnosis: Vasovagal syncope; dehydration secondary to colon prep; - Problem List/Discharge Diagnosis (1) Syncope Status: Acute Discharge Diagnosis: Syncope type: unspecified Qualified Code(s): R55 - Syncope and collapse Base Code: R55 - SYNCOPE AND COLLAPSE Comment: 08/30/17- based on history and work up thus far, most likely, vasovagal syncope. Ct head negative. EKG showing NSR with LVH. carotid dopplers showed <50% stenosis bilaterally. echo completed this morning, will forward that result to her pcp office. PT/OT completed evaluations and patient does not require any further therapy at this time. -follow up with PCP on 09/14/16 as scheduled -we discontinued one of the two diuretics patient was on. if she continues to have light-headedness would consider adjusting or removing her atenolol -patient will discharge home to her daughter's house with whom she resides. (2) Hypokalemia Status: Acute Base Code: E87.6 - HYPOKALEMIA Comment: 08/30/17- resolved. likely due to diuretic and laxative use. -will have her continue her atenolol/chlorthalidone 50-25 1/2 tablet daily -will have her discontinue her HCTZ -will have her decrease her potassium supplemntation to 20mg po bid from 60mg bid -repeat labs in 5-7 days. lab order form given -follow up with pcp on 09/14/16 as scheduled (3) UTI (urinary tract infection) Status: Acute Discharge Diagnosis: Urinary tract infection type: acute cystitis Hematuria presence: without hematuria Qualified Code(s): N30.00 - Acute cystitis without hematuria Base Code: N39.0 - URINARY TRACT INFECTION, SITE NOT SPECIFIED Comment: - UA positive for nitrite and LE. likely 2/2 dehydration and cscope prep. -continue bactrim DS po bid for a total of 3 days. (4) Colonoscopy planned Status: Acute Base Code: [id number] - Comment: 08/30/17- Dr. Domínguez did not feel colonsocopy was appropriate at this time. It has been cancelled. (5) DVT prophylaxis Status: Acute Base Code: [id number] - Comment: 08/30/17- Patient is high risk with age and restricted mobility. lovenox 40mg sq daily (6) Full code status Status: Acute Base Code: Z78.9 - OTHER SPECIFIED HEALTH STATUS Comment: - patient is full code - Hospitalization Course Disposition: Home, Self-Care Hospital Course: 87yo female with CC of syncope. She has a history of Parkinson's, HTN, T2DM, arthritis, osteoporosis, GERD, tubular adenoma, neuropathy, hypothyroidism, and was a former smoker. Patient was brought to the ED last night by EMS after a syncopal episode. Daughter reports that all day long the patient was doing a colon prep for an elective colonoscopy scheduled for the next day. She was finishing her magnesium citrate, in the bathroom when daughter heard a thud and came to find her on the floor in the bathroom. Daughter states that her eyes rolled back in her head and she was unresponsive for about a minute. EMS arrived to find she had been dizzy, diaphoretic, and confused. C collar was placed and she became alert, responsive, BS 131 enroute, and color improved. While in the ED, patient had EKG that showed NSR with LVH. Head Ct was negative for acute hemorrhage, showed age appropriate atrophy. CT c-spine showed no acute findings, as did her CXR and Hip XR. DDimer was 0.49. CBC was unremarkable. CP showed slightly low sodium 135 and potassium 3.2. BUN/Cr wnl. Her LA was elevated at 2.4. UA was positive for nitrites and LE. Patient was given one bactrim DS orally and admitted for syncope. 08/29/17- Patient states she is feeling better today. She denies any head ache, dizziness, vision changes. She has continued to have loose stool from the prep and is feeling very hungry. She denies chest pain, abdominal pain, vomiting. she says this is the first time she has had a syncopble episode. She does follow with Dr. Gomes, neurology, for parkinson's. She lives with her daughter and has round the clock assistance if needed. She usually gets around the house on her own with either a cane or walker. pcp: Dr. Lin/Olimpia Procedures: Imaging and X-Rays 08/29/17 10:07 ARTERIAL DOPPLER CAROTID CASA [US] Stat Cardiology Procedures 08/29/17 09:27 Telemetry [[facility]ice] .Continuous 08/29/17 12:49 Echo W/CF & Cardiac Doppler ONCE 08/29/17 17:06 Echo W/CF & Cardiac Doppler ONCE Abnormal Labs: Abnormal Lab Results 08/29/17 08/30/17 Range/Units 06:36 06:00 Lactic Acid 3.7 H 2.5 H (0.5-2.2) mmol/L Calcium 8.4 L (8.8-10.2) mg/dL Total Protein 6.1 L (6.6-8.7) g/dL Albumin 3.4 L (4.0-5.0) g/dL Condition at Discharge: (2) Stable Discharge Medications - Discharge Medications Prescriptions: Sulfamethoxazole/Trimethoprim [Bactrim Ds Tablet] 1 each PO BID #3 tablet Home Medications: Ambulatory Orders Albuterol Sulfate [Proair Hfa] 2 puff INH ASDIR PRN 07/25/14 [Last Taken ] Omeprazole [Prilosec] 20 mg PO QAM 07/25/14 [Last Taken 11/17/14 0518] Potassium Chloride [K-Tab ER] 20 meq PO BID 07/25/14 [Last Taken 11/16/14] Raloxifene HCl [Evista] 60 mg PO DAILY 07/25/14 [Last Taken 11/16/14] Simvastatin [Zocor] 80 mg PO QHS 07/25/14 [Last Taken 11/16/14] Timolol [Betimol] 5 ml OP BID 11/17/14 [Last Taken 11/17/14] Aspirin 81 mg PO DAILY 08/28/17 [Last Taken Unknown] Calcium Carbonate/Vitamin D3 [Calcium 600 + Vit D Tablet] 1 each PO DAILY [Last Taken Unknown] Carbidopa/Levodopa 25Mg/100Mg [Sinemet] 1 tab PO BID 08/28/17 [Last Taken Unknown] Carbidopa/Levodopa 25Mg/100Mg [Sinemet] 2 tab PO TID 08/28/17 [Last Taken Unknown] Docusate Sodium [Colace] 100 mg PO DAILY 08/28/17 [Last Taken Unknown] Glucosamine HCl 1,000 mg PO DAILY 08/28/17 [Last Taken Unknown] Meloxicam 7.5 mg PO DAILY 08/28/17 [Last Taken Unknown] Metformin HCl 500 mg PO BID 08/28/17 [Last Taken Unknown] Criders-3 Fatty Acids [Criders-3] 1,000 mg PO BID 08/28/17 [Last Taken Unknown] Atenolol/Chlorthalidone [Tenoretic 50 Tablet] 0.5 tab PO DAILY #0 08/30/17 [ Last Taken Unknown] Sulfamethoxazole/Trimethoprim [Bactrim Ds Tablet] 1 each PO BID #3 tablet [Last Taken Unknown] Discharge Plan - Discharge Instructions Activity at Discharge: Resume Usual Activities As Tolerated Diet at Discharge: Regular Diet Instructions: Syncope (DC) Additional Instructions: 2 Activity: 2 Diet: 2 Consults: [] 2 Follow Up: Follow up with Dr. Lin as previously scheduled. Please have your labs drawn a few days prior to that appointment Continue the bactrim 1 tab by mouth twice daily starting tonight and then through tomorrow. Please call with any questions or concerns Return to ED for any new or worsening symptoms 2 Dressing/Wound Care: (Type) (Change) 2 Additional: [] Quality Measures - Quality Measures Quality Measures: Advance Directives, Documentation of Current Medications in Medical Record, Elder Maltreatment Screen and Follow-Up Plan, Screening for High Blood Pressure and F/U Documented - Current Medications Quality Measure: Measure #130: Documentation of Current Medications Documentation of Current Medications: <Current Medications Documented/Reviewed> [G8427] - Blood Pressure Screening Quality Measure: Screening for High Blood Pressure and Follow-Up Documented Does Patient Have Any of the Following: Active Dx of HTN Blood Pressure Classification: Normal BP Reading Systolic Measurement: 118 Diastolic Measurement: 72 Screening for High Blood Pressure: Patient Exclusion, Hx of HTN [G9744] - Advance Directives Quality Measure: Measure #47: Care Plan Advance Directives Established: No Advance Directives Information Provided To Patient: No Advance Directives on File: No Living Will: No Power of Histology Aide: Yes Power of Histology Aide Name: JOHNSON REAGAN Advance Care Planning: <Care Plan/Decision Maker Documented; Discussed & Documented> [[id number]] - Elder Abuse Suspicion Index Screening: Elder Abuse Suspicion Index Screening Rely on people for bathing, dressing, shopping, banking, etc: No Prevented from getting food, clothes, medication, etc: No Made to feel shamed or threatened by someone: No Forced to sign papers or use money against will: No Feel afraid, touched in ways not wanted or hurt physically: No Poor eye contact, withdrawn, malnourished, cuts or bruises: No Screening Result: Negative result EASI Reference Information: Ayleen CAMACHO, Gregorio C, Rodrigo D, Mario Sibley.Development and validation of a tool to assist physicians identification of elder abuse: The Elder Abuse Suspicion Index (EASI ). Journal of Elder Abuse and Neglect, 2008; 20 (3): 276-300. - Elder Maltreatment Screen Quality Measures: Elder Maltreatment Screen and Follow-Up Plan Elder Maltreatment Screen: <Negative, No Follow-Up Plan Required> [[id number]]
== END 2017-08-30 13:30 | disposition home or self-care (01) ==
LOC: ER 22:56 → MEDSURG 08-29 02:21
PROVIDERS: ADMIT Internal Medicine; ATTEND Internal Medicine
DX: R55 Syncope and collapse (principal); E87.6 Hypokalemia; E11.9 Type 2 diabetes mellitus without complications; Z79.84 Long term (current) use of oral hypoglycemic drugs; R82.90 Unspecified abnormal findings in urine; J44.9 Chronic obstructive pulmonary disease, unspecified; Z87.891 Personal history of nicotine dependence; R61 Generalized hyperhidrosis; R41.0 Disorientation, unspecified; Z86.718 Personal history of other venous thrombosis and embolism; Z91.81 History of falling
CPT/HCPCS: 93041; 99285 ×2; 83605 ×3; 85025; 85730; 85610; 80076; 80048 ×2; 80053; 81001; 85379; 71020; 93880; 73521; 72125; 70450; 93005; 93010; G0378 ×2; J2405; J3490 ×2; G8987; G8988; G8989; 97165; 99217; 99220; J7040

== ENCOUNTER 2019-04-13 08:33 | Day surgery (SDC) | payer MEDICARE, BC ==
[2019-04-13] MEDS ORDERED: PROPOFOL 10 MG/ML VIAL IV ONE (08:34)
[2019-04-13] MEDS ORDERED: LIDOCAINE 2% MDV (20MG/ML) 20ML VIAL IV ONE (08:34)
--- NOTE | 2019-04-14 08:30 | Operative Note ---
OPERATION: ESOPHAGOGASTRODUODENOSCOPY with biopsy. INDICATION: Complaints of upper abdominal pain. Patient also with abnormal upper GI x-ray suggesting either thickened folds or a filling defect on the anterior wall of the stomach. Upper endoscopy is performed at this time for further evaluation. ANESTHESIA: Intravenous sedation was administered by the department of anesthesiology and included Diprivan titrated to effect. PROCEDURE: Following informed consent from this alert individual, including a discussion of the risks and benefits of the procedure and an opportunity for the patient to ask questions, the patient was in the left lateral decubitus position. The Olympus [id number] video endoscope was inserted into the esophagus without resistance. The proximal esophagus had a normal appearance with normal folds and distensibility. The mid and distal esophagus likewise was free from mucosal abnormalities. The squamocolumnar junction approximated the diaphragmatic hiatus and was smooth and well defined. The stomach was entered. The gastric fundus and pars media had diffuse gastritis noted on the edges of the folds. The folds were slightly enlarged. No filling defects, ulcerations, or erosions were seen. 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 A biopsy of the stomach was taken. The duodenum examined in its entirety appeared to be unremarkable as well. The endoscope was then drawn back into the body of the stomach. Retroflexion accomplished following air insufflation failed to demonstrate any changes. The endoscope was then straightened and withdrawn. The patient tolerated the procedure well and was returned to the recovery area in stable condition. IMPRESSION: 1. 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 2. Diffuse mild gastritis, biopsies taken. RECOMMENDATION: The patient will continue on acid blockade therapy. She will follow up with Dr. Lin. Further recommendations may be forthcoming pending results of biopsy. As always, thank you for allowing me to participate in the care of your patient. LULY
== END 2019-04-13 11:10 | disposition home or self-care (01) ==
LOC: HOP 08:33
PROVIDERS: ATTEND Internal Medicine Gastroenterology
DX: R10.10 Upper abdominal pain, unspecified (principal); R93.89 Abnormal findings on diagnostic imaging of other specified body structures; K29.50 Unspecified chronic gastritis without bleeding; Z98.890 Other specified postprocedural states; K21.9 Gastro-esophageal reflux disease without esophagitis; I10 Essential (primary) hypertension; E11.9 Type 2 diabetes mellitus without complications; E78.00 Pure hypercholesterolemia, unspecified; M81.0 Age-related osteoporosis without current pathological fracture; G20 Parkinson's disease